=== PATIENT | male | born 1980 | race Two or more races ===

== ENCOUNTER 2020-05-13 14:48 | Emergency (ER) | payer OTHER, SELFPAY ==
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
--- NOTE | 2020-05-13 14:53 | ECG_ITS ---
Test Reason : ALCOHOL INTOXICATION Blood Pressure : / mmHG Vent. Rate : 083 BPM Atrial Rate : 083 BPM P-R Int : 156 ms QRS Dur : 088 ms QT Int : 348 ms P-R-T Axes : 000 144 -20 degrees QTc Int : 408 ms Normal sinus rhythm Left posterior fascicular block Nonspecific T wave abnormality Inferior leads Abnormal ECG When compared with ECG of 12-MAY-2018 18:41, Inverted T waves have replaced nonspecific T wave abnormality in Inferior leads Referred By: Zoya Polanco Electronically Signed By:LILLI OROZCO MD
[2020-05-13 15:00] VITALS: BP 130/97; BP 145/88; PULSE 104; PULSE 90; RESP 16; TEMP 36.7; O2SAT 97; BMI 27.4
--- NOTE | 2020-05-13 15:08 | MHC.MBSS ---
SEEN BY DR ALEMAN. NO DISTRESS. NO C/O
--- NOTE | 2020-05-13 15:15 | MHC.CARE ---
Addiction Consult Service note: This investigative writer met with the 39 year old Norwegian speaking male in bed 5 of the main ED to discuss substance use. Patient reports he does not know how he got here but that he admits to smoking a little bit before he got here. This investigative writer explained to patient that he was brought here because people were concerned about him and that even using a little bit can be dangerous. Discussed with patient how substances can be laced with Fentanyl and it is prudent to avoid substances all together. Patient acknowledged and reports that he doesn't use frequently as it is. Patient encouraged to not use at all and patient acknowledged. This investigative writer offered patient community resources however patient declined, stating that he doesn't think about it that often and he feels as though he can avoid using without additional support. RN present for consultation. CARE Team available if patient changes mind regarding resources.
[2020-05-13 15:38] LABS: MANUAL DIFF FLAG NO
[2020-05-13 15:39] LABS: Basophils Absolute Auto 0.1 X10*3/uL (0.0-0.2); Basophils Percent Auto 0.9 % (0-2); Eosinophils Absolute Auto 0.3 X10*3/uL (0.0-0.4); Eosinophils Percent Auto 3.4 % (0-4); Hematocrit 40.7 % (42-52); Hemoglobin 13.9 g/dl (14.0-18.0); Imm Gran Abs Auto 0.02 X10*3/uL (0.00-0.03); Imm Gran Pct Auto 0.2 % (0.0-0.4); Lymphocytes Absolute Auto 1.9 X10*3/uL (1.2-4.9); Mean Corpuscular HGB Conc 34.2 g/dl (31.0-36.0); Mean Corpuscular Hemoglobin 30.9 pg (27.0-33.0); Mean Corpuscular Volume 90.4 fL (80-98); Mean Platelet Volume 9.3 fL (9.4-12.4); Monocytes Absolute Auto 0.6 X10*3/uL (0.1-1.2); Monocytes Percent Auto 6.1 % (2-11); Neutrophils Absolute Auto 6.9 X10*3/uL (2.0-8.3); Neutrophils Percent Auto 70.4 % (45-73); Platelet Count 327 X10*3/uL (160-400); Red Cell Distribution Width 14.3 % (11.0-16.0); White Blood Count 9.8 X10*3/uL (4.8-10.8)
[2020-05-13 16:26] LABS: Amphetamine Screen Urine Not Detected (Not Detect); Barbiturates, Urine Not Detected (Not Detect); Benzodiazepines Screen Urine Not Detected (Not Detect); Cannabinoid Screen Urine Not Detected (Not Detect); Cocaine Screen Urine Not Detected (Not Detect); Opiate Screen Urine Not Detected (Not Detect); Phencyclidine Screen Urine POSITIVE (Not Detect)
[2020-05-13 16:30] LABS: Alanine Aminotransferase 19 U/L (0-40); Albumin Level 4.5 g/dL (3.5-5.0); Alkaline Phosphatase 92 U/L (39-117); Anion Gap 11 (12-20); Aspartate Amino Transferase 17 U/L (5-37); Bilirubin Direct < 0.2 mg/dL (0.0-0.5); Bilirubin Total 0.2 mg/dL (0.0-1.0); Blood Urea Nitrogen 9 mg/dL (9-16); Calcium 9.4 mg/dL (8.4-10.2); Carbon Dioxide 27 mmol/L (22-29); Chloride 105 mmol/L (96-108); Creatinine Clr Calc Pharmacy 119.7; Estimated Glomerular Filt Rate > 60; Glucose Random 92 mg/dL (60-115); Magnesium 2.1 mg/dL (1.6-2.6); Potassium 4.4 mmol/l (3.3-5.1); Sodium 139 mmol/L (135-145); Total Protein 7.2 g/dL (6.5-8.0)
[2020-05-13 16:53] VITALS: BP 124/78; PULSE 68; RESP 16; TEMP 36.8; O2SAT 97
[2020-05-13 18:00] VITALS: BP 136/92; PULSE 87; RESP 18
== END 2020-05-13 18:56 | disposition home or self-care (01) ==
PROVIDERS: Emergency Provider Emergency Medicine
DX: F16.129 Hallucinogen abuse with intoxication, unspecified (principal); F17.200 Nicotine dependence, unspecified, uncomplicated; Z71.6 Tobacco abuse counseling; Z71.51 Drug abuse counseling and surveillance of drug abuser
CPT/HCPCS: 36415; 80048; 80076; 80307; 83735; 85025; 93005; 99283; 99284

== ENCOUNTER 2020-07-30 03:27 | Emergency (ER) | payer OTHER, SELFPAY ==
[2020-07-30 03:38] VITALS: BP 158/95; PULSE 65; RESP 18; TEMP 36.6; O2SAT 100; BMI 25.4
[2020-07-30 04:32] LABS: Basophils Absolute Auto 0.1 X10*3/uL (0.0-0.2); Basophils Percent Auto 0.5 % (0-2); Eosinophils Absolute Auto 0.4 X10*3/uL (0.0-0.4); Eosinophils Percent Auto 3.9 % (0-4); Hematocrit 45.4 % (42-52); Hemoglobin 15.6 g/dl (14.0-18.0); Imm Gran Abs Auto 0.03 X10*3/uL (0.00-0.03); Imm Gran Pct Auto 0.3 % (0.0-0.4); Lymphocytes Absolute Auto 2.6 X10*3/uL (1.2-4.9); Lymphocytes Percent Auto 23.7 % (20-40); MANUAL DIFF FLAG NO; Mean Corpuscular HGB Conc 34.4 g/dl (31.0-36.0); Mean Corpuscular Hemoglobin 31.3 pg (27.0-33.0); Mean Platelet Volume 9.6 fL (9.4-12.4); Monocytes Absolute Auto 0.9 X10*3/uL (0.1-1.2); Monocytes Percent Auto 7.8 % (2-11); Neutrophils Absolute Auto 7.1 X10*3/uL (2.0-8.3); Neutrophils Percent Auto 63.8 % (45-73); Platelet Count 288 X10*3/uL (160-400); Red Blood Count 4.99 X10*6/uL (4.60-5.80); Red Cell Distribution Width 13.8 % (11.0-16.0); White Blood Count 11.1 X10*3/uL (4.8-10.8)
[2020-07-30 04:58] LABS: Ethanol < 10 mg/dL
[2020-07-30 05:02] LABS: Anion Gap 18 (12-20); Blood Urea Nitrogen 8 mg/dL (9-16); Calcium 9.6 mg/dL (8.4-10.2); Carbon Dioxide 20 mmol/L (22-29); Chloride 107 mmol/L (96-108); Creatinine Clr Calc Pharmacy 111.5; Estimated Glomerular Filt Rate > 60; Glucose Random 85 mg/dL (60-115); Sodium 141 mmol/L (135-145)
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
== END 2020-07-30 07:10 | disposition home or self-care (01) ==
PROVIDERS: Emergency Provider Student in an Organized Health Care Education/Training Program
DX: F10.129 Alcohol abuse with intoxication, unspecified (principal); Y90.0 Blood alcohol level of less than 20 mg/100 ml
CPT/HCPCS: 36415; 80048; 80320; 85025; 99283; 99284

== ENCOUNTER 2020-09-20 19:27 | Emergency (ER) | payer OTHER, SELFPAY ==
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
[2020-09-20 19:40] VITALS: BP 164/99; PULSE 84; RESP 16; TEMP 36.1; O2SAT 98; BMI 26.6
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
[2020-09-20 20:35] LABS: Amphetamine Screen Urine Not Detected (Not Detect); Barbiturates, Urine Not Detected (Not Detect); Benzodiazepines Screen Urine Not Detected (Not Detect); Cannabinoid Screen Urine Not Detected (Not Detect); Cocaine Screen Urine Not Detected (Not Detect); Opiate Screen Urine Not Detected (Not Detect); Phencyclidine Screen Urine POSITIVE (Not Detect)
[2020-09-20 21:01] VITALS: BP 149/86; PULSE 67; RESP 16; TEMP 37; O2SAT 97
--- NOTE | 2020-09-20 22:23 | PC.NURSE ---
pt requesting to go home but does not have a ride home. Pt is willing to call a cab. PA aware.
== END 2020-09-20 22:51 | disposition home or self-care (01) ==
PROVIDERS: Physician Assistant; Emergency Provider Internal Medicine
DX: S00.90XA Unspecified superficial injury of unspecified part of head, initial encounter (principal); G44.309 Post-traumatic headache, unspecified, not intractable; F10.10 Alcohol abuse, uncomplicated; F17.200 Nicotine dependence, unspecified, uncomplicated; Z71.6 Tobacco abuse counseling; W17.89XA Other fall from one level to another, initial encounter; Y93.9 Activity, unspecified; Y92.511 Restaurant or cafe as the place of occurrence of the external cause; Y99.9 Unspecified external cause status
CPT/HCPCS: 70450; 80307; 99284

== ENCOUNTER 2021-06-18 21:24 | Emergency (ER) | payer OTHER, SELFPAY ==
[2021-06-18 21:47] VITALS: BP 147/79; BP 164/89; PULSE 71; PULSE 82; RESP 18; TEMP 35.6; O2SAT 100; BMI 27.4
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
== END 2021-06-18 22:51 | disposition left against medical advice (07) ==
PROVIDERS: Emergency Provider Emergency Medicine
DX: F16.10 Hallucinogen abuse, uncomplicated (principal); R40.4 Transient alteration of awareness
CPT/HCPCS: 99283

== ENCOUNTER 2021-08-14 03:14 | Emergency (ER) | payer OTHER, SELFPAY ==
[2021-08-14 03:24] VITALS: BP 147/94; PULSE 69; RESP 20; BMI 24.2
[2021-08-14] MEDS: Morphine Sulfate 4 MG/ML CARTRIDGE IVPUSH ×2 (03:38→04:01)
[2021-08-14] MEDS: ondansetron HCL 4 MG/2 ML VIAL IVPUSH (03:38)
[2021-08-14 03:55] LABS: MANUAL DIFF FLAG NO
[2021-08-14 03:58] LABS: Basophils Absolute Auto 0.1 X10*3/uL (0.0-0.2); Basophils Percent Auto 0.5 % (0-2); Eosinophils Absolute Auto 0.2 X10*3/uL (0.0-0.4); Eosinophils Percent Auto 1.1 % (0-4); Hematocrit 43.7 % (42.0-52.0); Hemoglobin 15.2 g/dl (14.0-18.0); Imm Gran Abs Auto 0.07 X10*3/uL (0.00-0.03); Imm Gran Pct Auto 0.4 % (0.0-0.4); Lymphocytes Absolute Auto 2.1 X10*3/uL (1.2-4.9); Lymphocytes Percent Auto 11.3 % (20-40); Mean Corpuscular HGB Conc 34.8 g/dl (31.0-36.0); Mean Corpuscular Hemoglobin 31.3 pg (27.0-33.0); Mean Corpuscular Volume 89.9 fL (80.0-98.0); Mean Platelet Volume 9.1 fL (9.4-12.4); Neutrophils Absolute Auto 15.4 x10*3/uL (2.0-8.3); Neutrophils Percent Auto 81.7 % (45-73); Platelet Count 268 X10*3/uL (160-400); Red Blood Count 4.86 X10*6/uL (4.60-5.80); Red Cell Distribution Width 13.6 % (11.0-16.0); White Blood Count 18.9 X10*3/uL (4.8-10.8)
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
[2021-08-14] MEDS: Diphth,Pertus(ACell),Tet Adult 0.5 ML SYRINGE IM (04:01)
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
[2021-08-14 04:06] LABS: Prothrombin Time 11.1 SEC (9.9-13.0)
[2021-08-14 04:08] LABS: D Dimer High Sensitivity 284 NG/ML
[2021-08-14 04:09] LABS: Partial Thromboplastin Time 29.8 SEC (24.1-38.0)
[2021-08-14 04:10] LABS: Lactic Acid 1.5 mmol/L (0.5-2.0)
[2021-08-14 04:17] LABS: Alanine Aminotransferase 21 U/L (0-40); Albumin Level 4.7 g/dL (3.5-5.0); Alkaline Phosphatase 92 U/L (39-117); Anion Gap 15 (12-20); Aspartate Amino Transferase 27 U/L (5-37); Bilirubin Total 0.4 mg/dL (0.0-1.0); Blood Urea Nitrogen 12 mg/dL (9-16); C Reactive Protein 0.21 mg/dL (< or = 0.50); COVID-19 Test Negative (Negative); Calcium 9.6 mg/dL (8.4-10.2); Carbon Dioxide 23 mmol/L (22-29); Chloride 108 mmol/L (96-108); Creatinine Clr Calc Pharmacy 113.6; Estimated Glomerular Filt Rate > 60; Glucose Random 110 mg/dL (60-115); Potassium 4.2 mmol/L (3.3-5.1); Sodium 142 mmol/L (135-145); Total Protein 7.8 g/dL (6.5-8.0)
--- NOTE | 2021-08-14 04:25 | PC.NURSE ---
CALL OUT TO [facility] TRANSFER LINE @[phone] [facility] DECLINED PATIENT
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
[2021-08-14 04:45] VITALS: RESP 18
[2021-08-14] MEDS: HYDROmorphone HCl 1 MG/ML SYRINGE IVPUSH ×2 (04:45→05:57)
[2021-08-14 04:46] LABS: Erythrocyte Sedimentation Rate 2 MM/HR (0-15)
[2021-08-14 05:00] VITALS: BP 137/84
--- NOTE | 2021-08-14 05:34 | PC.NURSE ---
pt has been accepted by [facility] with an urgent transport requested by EMS. pt to be medicated prior to transport
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
== END 2021-08-14 06:44 | disposition short-term general hospital (02) ==
PROVIDERS: Emergency Provider Emergency Medicine Emergency Medical Services
DX: I73.89 Other specified peripheral vascular diseases (principal); T34.532A Frostbite with tissue necrosis of left finger(s), initial encounter; T34.531A Frostbite with tissue necrosis of right finger(s), initial encounter; T34.832A Frostbite with tissue necrosis of left toe(s), initial encounter; T34.831A Frostbite with tissue necrosis of right toe(s), initial encounter; X31.XXXA Exposure to excessive natural cold, initial encounter; Z59.00 Homelessness unspecified; F17.200 Nicotine dependence, unspecified, uncomplicated; Y93.84 Activity, sleeping; Y92.830 Public park as the place of occurrence of the external cause; Y99.9 Unspecified external cause status; Z20.822 Contact with and (suspected) exposure to COVID-19
CPT/HCPCS: 36415; 80053; 83605; 85025; 85379; 85610; 85652; 85730; 86140; 87635; 90471; 90715; 96372; 96374; 96375; 96376; 99283; 99291; J1170; J2270; J2405

== ENCOUNTER 2021-09-04 20:56 | Emergency (ER) | payer OTHER, SELFPAY ==
--- NOTE | ~2021-09-04 | XR_ITS ---
EXAMINATION: BILATERAL HANDS CLINICAL INFORMATION: Bilateral hand pain COMPARISON: Right hand and wrist 08/16/2018, left hand and wrist 08/08/2014 TECHNIQUE: 3 views each hand. FINDINGS: There is some mild soft tissue swelling, most marked around the right third DIP and PIP joints, but no osseous abnormality is seen. No erosions or fractures or subluxations are present. No chondrocalcinosis. XR/XR hand RT min 3V IMPRESSION: Mild soft tissue swelling without significant osseous abnormality.
--- NOTE | ~2021-09-04 | XR_ITS ---
EXAMINATION: BILATERAL HANDS CLINICAL INFORMATION: Bilateral hand pain COMPARISON: Right hand and wrist 08/16/2018, left hand and wrist 08/08/2014 TECHNIQUE: 3 views each hand. FINDINGS: There is some mild soft tissue swelling, most marked around the right third DIP and PIP joints, but no osseous abnormality is seen. No erosions or fractures or subluxations are present. No chondrocalcinosis. XR/XR hand LT min 3V IMPRESSION: Mild soft tissue swelling without significant osseous abnormality.
[2021-09-04 21:17] VITALS: BP 156/98; PULSE 79; RESP 20; TEMP 36.6; O2SAT 97; BMI 24.5
--- NOTE | 2021-09-04 21:17 | ECG_ITS ---
Test Reason : ETOH Blood Pressure : / mmHG Vent. Rate : 082 BPM Atrial Rate : 082 BPM P-R Int : 164 ms QRS Dur : 094 ms QT Int : 386 ms P-R-T Axes : 036 046 015 degrees QTc Int : 450 ms Normal sinus rhythm Normal ECG When compared with ECG of 13-MAY-2020 15:18, Left posterior fascicular block is no longer Present T wave inversion less evident in Inferior leads Referred By: Marvin Montiel Electronically Signed By:GENA UGARTE
[2021-09-04] MEDS: LORazepam 2 MG/ML VIAL IM (21:26)
[2021-09-04] MEDS: diphenhydrAMINE HCL 50 MG/ML VIAL IM (21:26)
[2021-09-04] MEDS: Haloperidol Lactate 5 MG/ML VIAL IM (21:26)
[2021-09-04 21:30] VITALS: PULSE 74; RESP 20; O2SAT 98
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
[2021-09-04 21:45] VITALS: PULSE 76; RESP 16; O2SAT 97
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
[2021-09-04 22:02] VITALS: PULSE 73; RESP 15; O2SAT 97
[2021-09-04 22:15] VITALS: PULSE 74; RESP 15; O2SAT 97
[2021-09-04 22:41] LABS: MANUAL DIFF FLAG NO
[2021-09-04 22:42] LABS: Basophils Absolute Auto 0.1 X10*3/uL (0.0-0.2); Basophils Percent Auto 0.7 % (0-2); Eosinophils Absolute Auto 0.3 X10*3/uL (0.0-0.4); Eosinophils Percent Auto 2.8 % (0-4); Hematocrit 36.8 % (42.0-52.0); Hemoglobin 12.6 g/dl (14.0-18.0); Imm Gran Abs Auto 0.04 X10*3/uL (0.00-0.03); Imm Gran Pct Auto 0.3 % (0.0-0.4); Lymphocytes Absolute Auto 1.9 X10*3/uL (1.2-4.9); Lymphocytes Percent Auto 15.9 % (20-40); Mean Corpuscular HGB Conc 34.2 g/dl (31.0-36.0); Mean Corpuscular Hemoglobin 30.8 pg (27.0-33.0); Monocytes Absolute Auto 0.8 X10*3/uL (0.1-1.2); Monocytes Percent Auto 6.8 % (2-11); Neutrophils Absolute Auto 8.7 x10*3/uL (2.0-8.3); Neutrophils Percent Auto 73.5 % (45-73); Platelet Count 453 X10*3/uL (160-400); Red Blood Count 4.09 X10*6/uL (4.60-5.80); Red Cell Distribution Width 13.1 % (11.0-16.0); White Blood Count 11.9 X10*3/uL (4.8-10.8)
[2021-09-04 22:54] LABS: Lactic Acid 0.9 mmol/L (0.5-2.0)
[2021-09-04 22:56] LABS: Ethanol < 10 mg/dL
[2021-09-04 22:58] LABS: Alanine Aminotransferase 19 U/L (0-40); Alkaline Phosphatase 96 U/L (39-117); Anion Gap 12 (12-20); Aspartate Amino Transferase 17 U/L (5-37); Bilirubin Total 0.4 mg/dL (0.0-1.0); Blood Urea Nitrogen 14 mg/dL (9-16); Calcium 9.2 mg/dL (8.4-10.2); Carbon Dioxide 27 mmol/L (22-29); Chloride 107 mmol/L (96-108); Creatinine Clr Calc Pharmacy 106.7; Estimated Glomerular Filt Rate > 60; Glucose Random 93 mg/dL (60-115); Potassium 3.9 mmol/L (3.3-5.1); Sodium 142 mmol/L (135-145); Total Protein 6.4 g/dL (6.5-8.0)
--- NOTE | 2021-09-04 23:15 | PC.NURSE ---
Report received and care assumed. Pt resting comfortably in stretcher with eyes closed, respirations even and unlabored and without distress noted. Caridac monitor in place with NSR on the monitor. Pt without sitter in place at this time as it is not required. RN will continue to monitor.
[2021-09-04 23:16] LABS: COVID-19 Test Negative (Negative)
[2021-09-05 00:25] VITALS: BP 106/65; PULSE 69; RESP 18; O2SAT 96
[2021-09-05] MEDS: 0.9 % Sodium Chloride 1,000 ML 999 ML IV (01:57)
[2021-09-05 02:00] VITALS: BP 111/72; PULSE 60; RESP 18; O2SAT 98
[2021-09-05 02:18] LABS: C Reactive Protein 0.18 mg/dL (< or = 0.50)
[2021-09-05 02:42] LABS: Erythrocyte Sedimentation Rate 3 MM/HR (0-15)
--- NOTE | 2021-09-05 03:28 | PC.NURSE ---
PT woke up irritable and requesting information as to how he got here and/or why, requesting where his hand wraps and clothes were. This RN attempted to answer the patient's questions and education provided. Pt attempted to decline/refuse antibiotics as he thought it was ibuprofen only; once further clarification/education provided he agreed. This RN wrapped all 5 fingers to the patient's left hand and his right index and middle fingers with guaze wrap and xeroform in between to prevent adhesion and/or further damage to healing skin. Pt provided with additional gauze wrap and tape for changes as needed at home. The pt was quite, denied offered of food and/or beverage and remains without distress. type casting machine operator to provide patient with discharge information and the patient denied questions. Pt escorted by charge master coordinator to security office for him to retrieve his belongings from the decon room.
== END 2021-09-05 03:30 | disposition home or self-care (01) ==
PROVIDERS: Physician Assistant; Emergency Provider Internal Medicine
DX: F16.10 Hallucinogen abuse, uncomplicated (principal); R45.1 Restlessness and agitation; R45.6 Violent behavior; R00.0 Tachycardia, unspecified; S61.301A Unspecified open wound of left index finger with damage to nail, initial encounter; T34.532A Frostbite with tissue necrosis of left finger(s), initial encounter; T34.531A Frostbite with tissue necrosis of right finger(s), initial encounter; X31.XXXA Exposure to excessive natural cold, initial encounter; Z20.822 Contact with and (suspected) exposure to COVID-19; Y93.89 Activity, other specified; Y92.410 Unspecified street and highway as the place of occurrence of the external cause; Y99.9 Unspecified external cause status
CPT/HCPCS: 36415; 73130; 80053; 82077; 82550; 83605; 83735; 85025; 85652; 86140; 87040; 87635; 93005; 96360; 96361; 96372; 99285; 99291; J1200; J2060

== ENCOUNTER 2021-12-04 17:15 | Emergency (ER) | payer OTHER, SELFPAY ==
[2021-12-04 17:27] VITALS: BP 154/92; PULSE 104; PULSE 80; RESP 16; TEMP 36.6; O2SAT 100; O2SAT 98; BMI 24.2
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
== END 2021-12-04 18:22 | disposition home or self-care (01) ==
PROVIDERS: Emergency Provider Internal Medicine
DX: F16.10 Hallucinogen abuse, uncomplicated (principal); F17.210 Nicotine dependence, cigarettes, uncomplicated
CPT/HCPCS: 99284

== ENCOUNTER 2021-12-09 14:08 | Outpatient (REF) | payer OTHER, SELFPAY ==
[2021-12-09 14:20] LABS: MANUAL DIFF FLAG NO
[2021-12-09 14:45] LABS: Basophils Absolute Auto 0.1 X10*3/uL (0.0-0.2); Eosinophils Absolute Auto 0.7 X10*3/uL (0.0-0.4); Eosinophils Percent Auto 7.2 % (0-4); Hematocrit 41.4 % (42.0-52.0); Hemoglobin 14.1 g/dl (14.0-18.0); Imm Gran Abs Auto 0.02 X10*3/uL (0.00-0.03); Imm Gran Pct Auto 0.2 % (0.0-0.4); Lymphocytes Absolute Auto 2.9 X10*3/uL (1.2-4.9); Lymphocytes Percent Auto 31.2 % (20-40); Mean Corpuscular HGB Conc 34.1 g/dl (31.0-36.0); Mean Corpuscular Hemoglobin 30.1 pg (27.0-33.0); Mean Corpuscular Volume 88.3 fL (80.0-98.0); Mean Platelet Volume 9.5 fL (9.4-12.4); Monocytes Absolute Auto 0.9 X10*3/uL (0.1-1.2); Monocytes Percent Auto 10.2 % (2-11); Neutrophils Absolute Auto 4.6 x10*3/uL (2.0-8.3); Neutrophils Percent Auto 50.2 % (45-73); Platelet Count 288 X10*3/uL (160-400); Red Blood Count 4.69 X10*6/uL (4.60-5.80); Red Cell Distribution Width 13.7 % (11.0-16.0); White Blood Count 9.2 X10*3/uL (4.8-10.8)
[2021-12-09 15:03] LABS: Alanine Aminotransferase 61 U/L (0-40); Albumin Level 4.5 g/dL (3.5-5.0); Alkaline Phosphatase 89 U/L (39-117); Anion Gap 14 (12-20); Aspartate Amino Transferase 32 U/L (5-37); Bilirubin Total 0.2 mg/dL (0.0-1.0); Blood Urea Nitrogen 10 mg/dL (9-16); Calcium 9.7 mg/dL (8.4-10.2); Carbon Dioxide 25 mmol/L (22-29); Chloride 107 mmol/L (96-108); Cholesterol 162 mg/dL; Estimated Glomerular Filt Rate > 60; Glucose Fasting 91 mg/dL (60-99); HDL Cholesterol 53 mg/dL; LDL Cholesterol Calculated 88 mg/dl; Potassium 4.2 mmol/L (3.3-5.1); Sodium 142 mmol/L (135-145); Total Protein 7.1 g/dL (6.5-8.0); Triglycerides 106 mg/dL
== END 2021-12-09 14:09 | disposition home or self-care (01) ==
LOC: HO.LAB 14:08
PROVIDERS: PCP Nurse Practitioner Family; Visit Provider Nurse Practitioner Family
DX: F41.1 Generalized anxiety disorder (principal); E78.00 Pure hypercholesterolemia, unspecified; I10 Essential (primary) hypertension
CPT/HCPCS: 36415; 80053; 80061; 84443; 85025

== ENCOUNTER 2021-12-09 16:27 | Emergency (ER) | payer OTHER, SELFPAY ==
[2021-12-09 16:45] VITALS: BP 127/86; PULSE 123; RESP 16; TEMP 37.7; O2SAT 96
[2021-12-09 17:24] VITALS: BP 147/80; PULSE 130; O2SAT 100
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
== END 2021-12-09 17:32 | disposition left against medical advice (07) ==
PROVIDERS: Emergency Provider Emergency Medicine
DX: T88.7XXA Unspecified adverse effect of drug or medicament, initial encounter (principal); T50.905A Adverse effect of unspecified drugs, medicaments and biological substances, initial encounter; Y92.9 Unspecified place or not applicable

== ENCOUNTER 2021-12-30 15:10 | Outpatient (REF) | payer OTHER, SELFPAY ==
--- NOTE | ~2021-12-30 | XR_ITS ---
EXAMINATION: XR CERVICAL SPINE CLINICAL INFORMATION: Cervicalgia. COMPARISON: CT of the cervical spine dated from 05/22/2019. TECHNIQUE: 3 views of the cervical spine were obtained. FINDINGS: There are no prevertebral soft tissue or bony abnormalities demonstrated. No compression fractures or subluxations are identified. Alignment is maintained at the atlanto-axial articulation. The disc spaces are preserved. No endplate changes are seen. The prevertebral soft tissues are normal. XR/XR cervical spine 3V IMPRESSION: Unremarkable examination.
== END 2021-12-30 15:11 | disposition home or self-care (01) ==
LOC: HO.XRAY 15:10
PROVIDERS: Visit Provider Nurse Practitioner Family
DX: M54.2 Cervicalgia (principal)
CPT/HCPCS: 72040

== ENCOUNTER 2022-01-04 20:26 | Emergency (ER) | payer OTHER, SELFPAY ==
[2022-01-04 20:53] VITALS: BP 137/86; BP 154/104; PULSE 83; PULSE 99; RESP 18; TEMP 37.1; O2SAT 99; BMI 26.0
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
[2022-01-04 22:36] VITALS: BP 139/89; PULSE 87; RESP 16; TEMP 36.8; O2SAT 100
[2022-01-04 22:48] LABS: Amphetamine Screen Urine Not Detected (Not Detect); Barbiturates, Urine Not Detected (Not Detect); Benzodiazepines Screen Urine Not Detected (Not Detect); Cannabinoid Screen Urine Not Detected (Not Detect); Cocaine Screen Urine Not Detected (Not Detect); Fentanyl, urine Not Detected (Not Detect); Opiate Screen Urine Not Detected (Not Detect); Phencyclidine Screen Urine POSITIVE (Not Detect)
== END 2022-01-04 22:54 | disposition home or self-care (01) ==
PROVIDERS: Emergency Provider Emergency Medicine
DX: F16.120 Hallucinogen abuse with intoxication, uncomplicated (principal); F17.200 Nicotine dependence, unspecified, uncomplicated; Z79.899 Other long term (current) drug therapy
CPT/HCPCS: 80307; 99283; 99284

== ENCOUNTER 2022-01-24 20:49 | Emergency (ER) | payer OTHER, SELFPAY ==
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
[2022-01-24 21:01] VITALS: BP 138/101; BP 148/92; PULSE 104; PULSE 98; RESP 18; TEMP 537; TEMP 998.6; O2SAT 99; BMI 25.9
--- NOTE | 2022-01-24 22:09 | HO.SUDE ---
CARE team met with pt to offer a substance use disorder evaluation at approximately 9:15pm. Pt was lethargic, slow to respond, and was not appropriate for evaluation at that time. Pt agreed to speak with this ticket writer one hour later, agreed to also speak with a men's golf coach when he was a little more alert. Pt eloped from the ED shortly after.
== END 2022-01-24 21:36 | disposition left against medical advice (07) ==
PROVIDERS: Emergency Provider Emergency Medicine
DX: T40.1X1A Poisoning by heroin, accidental (unintentional), initial encounter (principal); Y92.9 Unspecified place or not applicable; Z79.899 Other long term (current) drug therapy; Z71.51 Drug abuse counseling and surveillance of drug abuser
CPT/HCPCS: 99282

== ENCOUNTER 2022-01-27 20:39 | Emergency (ER) | payer OTHER, SELFPAY ==
[2022-01-27 20:53] VITALS: BP 142/94; PULSE 108; RESP 22; TEMP 37.1; O2SAT 99; BMI 22.9
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
== END 2022-01-27 21:16 | disposition left against medical advice (07) ==
PROVIDERS: Emergency Provider Emergency Medicine
DX: F16.10 Hallucinogen abuse, uncomplicated (principal); F17.200 Nicotine dependence, unspecified, uncomplicated
CPT/HCPCS: 99282

== ENCOUNTER 2022-02-02 08:28 | Outpatient (REF) | payer OTHER, SELFPAY ==
[2022-02-02 09:45] LABS: Alanine Aminotransferase 11 U/L (0-40); Albumin Level 4.5 g/dL (3.5-5.0); Alkaline Phosphatase 93 U/L (39-117); Aspartate Amino Transferase 12 U/L (5-37); Bilirubin Direct < 0.2 mg/dL (0.0-0.5); Bilirubin Total 0.2 mg/dL (0.0-1.0); Total Protein 7.2 g/dL (6.5-8.0)
== END 2022-02-02 08:29 | disposition home or self-care (01) ==
LOC: HO.LAB 08:28
PROVIDERS: Nurse Practitioner Family; PCP Nurse Practitioner Family; Visit Provider Nurse Practitioner Family
DX: K64.9 Unspecified hemorrhoids (principal); R79.89 Other specified abnormal findings of blood chemistry; K59.03 Drug induced constipation; Z79.899 Other long term (current) drug therapy
CPT/HCPCS: 36415; 80076; 99202

== ENCOUNTER → 2022-02-23 08:50 | Outpatient (BNVA) | payer OTHER, SELFPAY | PROVIDERS: PCP Nurse Practitioner Family; Visit Provider Surgery | DX: K64.8 Other hemorrhoids (principal); K64.4 Residual hemorrhoidal skin tags | CPT/HCPCS: 46600; 99202 ==

== ENCOUNTER 2022-03-17 14:00 | Outpatient (RCR) | payer OTHER, SELFPAY | END 2022-03-17 16:03 | disposition home or self-care (01) | LOC: HO.OT 14:00 | PROVIDERS: Visit Provider Nurse Practitioner | DX: T33.521D Superficial frostbite of right hand, subsequent encounter (principal); T33.522D Superficial frostbite of left hand, subsequent encounter | CPT/HCPCS: 97033; 97110; 97140; 97166; 97530; 97760 ==

== ENCOUNTER → 2022-05-24 12:52 | Outpatient (BNVA) | payer OTHER, MEDICAID, SELFPAY | PROVIDERS: PCP Nurse Practitioner Family; Visit Provider Orthopaedic Surgery | DX: T33.521A Superficial frostbite of right hand, initial encounter (principal); T33.522A Superficial frostbite of left hand, initial encounter | CPT/HCPCS: 99202 ==

== ENCOUNTER 2023-02-15 10:45 | Outpatient (REF) | payer OTHER, SELFPAY ==
[2023-02-15 11:25] LABS: MANUAL DIFF FLAG NO
[2023-02-15 11:38] LABS: Basophils Absolute Auto 0.1 X10*3/uL (0.0-0.2); Basophils Percent Auto 0.9 % (0-2); Eosinophils Absolute Auto 0.2 X10*3/uL (0.0-0.4); Hematocrit 43.8 % (42.0-52.0); Hemoglobin 15.1 g/dl (14.0-18.0); Imm Gran Abs Auto 0.02 X10*3/uL (0.00-0.03); Imm Gran Pct Auto 0.2 % (0.0-0.4); Lymphocytes Absolute Auto 2.6 X10*3/uL (1.2-4.9); Lymphocytes Percent Auto 28.8 % (20-40); Mean Corpuscular HGB Conc 34.5 g/dl (31.0-36.0); Mean Corpuscular Volume 89.9 fL (80.0-98.0); Mean Platelet Volume 9.9 fL (9.4-12.4); Monocytes Absolute Auto 0.8 X10*3/uL (0.1-1.2); Monocytes Percent Auto 8.8 % (2-11); Neutrophils Absolute Auto 5.3 x10*3/uL (2.0-8.3); Neutrophils Percent Auto 59.3 % (45-73); Platelet Count 288 X10*3/uL (160-400); Red Blood Count 4.87 X10*6/uL (4.60-5.80); Red Cell Distribution Width 13.6 % (11.0-16.0)
[2023-02-16 02:08] LABS: Alanine Aminotransferase 13 U/L (0-40); Albumin Level 4.7 g/dL (3.5-5.0); Alkaline Phosphatase 80 U/L (39-117); Anion Gap 12 (12-20); Aspartate Amino Transferase 16 U/L (5-37); Bilirubin Total 0.7 mg/dL (0.0-1.0); Blood Urea Nitrogen 9 mg/dL (9-16); Calcium 9.5 mg/dL (8.4-10.2); Carbon Dioxide 25 mmol/L (22-29); Chloride 108 mmol/L (96-108); Cholesterol 132 mg/dL; Estimated Glomerular Filt Rate > 60; Glucose Fasting 86 mg/dL (60-99); HDL Cholesterol 53 mg/dL; LDL Cholesterol Calculated 69 mg/dl; Potassium 3.9 mmol/L (3.3-5.1); Sodium 141 mmol/L (135-145); Total Protein 7.4 g/dL (6.5-8.0); Triglycerides 52 mg/dL
[2023-02-16 02:10] LABS: TSH reflex Free T4 0.87 uIU/mL (0.32-4.0)
== END 2023-02-15 10:46 | disposition home or self-care (01) ==
LOC: HO.LAB 10:45
PROVIDERS: Visit Provider Nurse Practitioner Family
DX: Z13.220 Encounter for screening for lipoid disorders (principal); Z13.29 Encounter for screening for other suspected endocrine disorder; Z13.0 Encounter for screening for diseases of the blood and blood-forming organs and certain disorders involving the immune mechanism
CPT/HCPCS: 36415; 80053; 80061; 84443; 85025

== ENCOUNTER → 2023-12-26 15:08 | Outpatient (RCR) | payer OTHER, MEDICAID, SELFPAY | END | disposition home or self-care (01) | LOC: HO.OT 06-27 08:34 | PROVIDERS: PCP Nurse Practitioner Family; Visit Provider Orthopaedic Surgery | DX: T33.521A Superficial frostbite of right hand, initial encounter (principal); T33.522A Superficial frostbite of left hand, initial encounter ==

== ENCOUNTER 2024-10-25 16:37 | Emergency (ER) | payer MEDICAID, SELFPAY ==
[2024-10-25 16:46] VITALS: BP 152/82; BP 152/87; PULSE 72; PULSE 98; RESP 18; O2SAT 96; O2SAT 97; BMI 30.4
--- NOTE | 2024-10-25 17:01 | PC.NURSE ---
Pt removed his C Collar and started exit seeking. Was unable to be redirected verbally. Had strong steady gait. Was no violent but just walked by security and out EMS door as it opened. Provider had not yet seen patient.
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
== END 2024-10-25 17:10 | disposition left against medical advice (07) ==
PROVIDERS: Emergency Provider Emergency Medicine
DX: F19.10 Other psychoactive substance abuse, uncomplicated (principal); R41.82 Altered mental status, unspecified; F17.210 Nicotine dependence, cigarettes, uncomplicated
CPT/HCPCS: 99281; 99282

== ENCOUNTER 2024-11-26 19:10 | Emergency (ER) | payer OTHER, SELFPAY ==
[2024-11-26 19:25] VITALS: BP 158/96; PULSE 88; O2SAT 98
[2024-11-26 19:26] VITALS: BP 169/78; PULSE 76; RESP 16; TEMP 36.4; O2SAT 98; BMI 29.2
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
--- NOTE | 2024-11-26 19:41 | PC.NURSE ---
Pt BIBA after being found facedown on sidewalk and suspected substance use. Pt transferred onto stretcher. Pt then go up and walked down hallway out of ED with staff attempting to redirect him back into department. Pt exited via emergency exit door and security followed. Pt brought back in by security after them finding him in parking lot. Pt returned to ED alert and oriented x4 and ambulated with a steady gait. Patient denied and SI/HI thoughts. Dr. Ladd to bedside to assess patient and patient stated he wanted to go and could walk. Pt cooperative with having vital signs taken, answering registration questions and signing paperwork. Pt discharged and escorted out of the ED by security.
[2024-11-26 19:47] VITALS: BP 169/78; PULSE 76; RESP 16; TEMP 36.4; O2SAT 98
[2024-11-26 19:49] VITALS: BP 169/78; PULSE 76; RESP 16; TEMP 36.4; O2SAT 98
== END 2024-11-26 19:56 | disposition home or self-care (01) ==
LOC: HO.ED 19:40
PROVIDERS: Emergency Provider Emergency Medicine; PCP Orthopaedic Surgery Hand Surgery
DX: F16.10 Hallucinogen abuse, uncomplicated (principal)
CPT/HCPCS: 99283; 99284